=== PATIENT | female | born 1940 | race Caucasian/White ===

== ENCOUNTER 2016-11-16 22:40 | Inpatient (IN) ==
[2016-11-16] MEDS ORDERED: MORPHINE IV ONE (23:27)
[2016-11-16] MEDS ORDERED: ZOFRAN IV ONE (23:27)
[2016-11-16] MEDS ORDERED: NS 1,000 ML IV ONE (23:27)
[2016-11-17 00:12] LABS: MANUAL DIFF NEEDED? NO
[2016-11-17 00:17] LABS: BASO% 0.2 % (0.0-0.8); HEMATOCRIT 35.2 % (37.0-47.0); HEMOGLOBIN 11.5 g/dL (12.0-16.0); IMM GRAN# 0.03 X1000 (0.0-0.04); IMM GRAN% 0.3 % (0.0-0.5); LYMPH# 0.74 X1000 (1.2-3.4); LYMPH% 6.5 % (20.5-51.1); MCHC 32.7 g/dL (33-37); MCV 88.7 FL (81-99); MONO# 2.09 X1000 (0.11-0.59); MONO% 18.3 % (1.7-9.3); MPV 8.9 FL (7.4-10.4); NEUT% 74.7 % (42.2-75.2); PLT 257 X1000 (130-400); RBC 3.97 XMIL (4.2-5.4)
[2016-11-17 00:29] LABS: INR 1.19; PROTIME 12.6 Seconds (9.2-11.7); PTT 27.3 Seconds (22.0-36.0)
--- NOTE | 2016-11-17 00:37 | PROVIDER DOCUMENTATION ---
This chart was entered by Cadence Maurer Scribe, acting as scribe for Sincere Santiago MD. HPI-General Adult - General Chief Complaint: General Adult Stated Complaint: CAN'T WALK/SWOLLEN HANDS Time Seen by Provider: 11/16/16 23:06 Source: patient Allergies/Adverse Reactions: Patient Allergies Allergy/AdvReac Type Severity Reaction Status Date / Time daptomycin [From Cubicin] Allergy Severe RASH Verified 11/16/16 22:54 ceftriaxone sodium * Allergy RASH Verified 11/16/16 22:54 [From Rocephin] Penicillins Allergy RASH Verified 11/16/16 22:54 quinine Allergy RASH Verified 11/16/16 22:54 Sulfa (Sulfonamide Allergy RASH Verified 11/16/16 22:54 Antibiotics) Home Medications: Home Medication List Medication Instructions Recorded Confirmed Last Taken Type Telmisartan [Micardis] 40 mg PO DAILY 02/01/16 02/01/16 Unknown History Acetaminophen [Tylenol] 650 mg PO Q6H PRN PRN #0 tablet 02/07/16 Unknown Rx Clindamycin [Cleocin] 300 mg PO Q8HR #30 capsule 02/07/16 Unknown Rx Hydroxyzine Pamoate [Vistaril] 25 mg PO Q8H PRN #60 capsule 02/07/16 Unknown Rx Non-Formulary Bulk Med 30 appful TOP BID #30 misc 02/07/16 Unknown Rx Omeprazole [Prilosec] 40 mg PO DAILY@0700 #0 capsule 02/07/16 Unknown Rx Promethazine [Phenergan] 12.5 mg PO Q6H PRN PRN #30 tablet 02/07/16 Unknown Rx - History of Present Illness -Gen Adult Nature of Presenting Problems: Patient is a 76 year old female who presents in the ED with complaints of bilateral hand swelling/pain. Patient states she woke up this morning and was unable to get up from her bed due to weakness, and states she stayed in bed all day. She also states she did not eat today, but drank a small amount of water. She reports she has also had bilateral hand swelling/redness/pain. She denies any other symptoms. Location of Pain/Injury: reports: hand(s) (bilateral) Pain Radiation: reports: no radiation Quality of Pain: reports: aching Severity: reports: moderate Onset/Duration: reports: abrupt Timing: reports: still present, getting worse Context/Activities at Onset: reports: none Modifying Factors: improves with: nothing Associated Symptoms: reports: loss of appetite, weakness, other (bilateral hand swelling/pain/redness). denies: cough, nausea Similar Symptoms Previously?: No Recently seen or treated by another doctor?: No Review of Systems - Adult - REVIEW OF SYSTEMS - ADULT Constitutional: reports: other (weakness) Eyes: reports: no symptoms reported Ears, Nose, Mouth & Throat: reports: no symptoms reported Cardiovascular: reports: no symptoms reported Respiratory: reports: no symptoms reported. denies: cough Gastrointestinal: reports: no symptoms reported. denies: constipation, diarrhea , nausea, vomiting Genitourinary: reports: no symptoms reported. denies: see HPI, dysuria, discharge, frequency, flank pain, frequent UTI's, hematuria, hesitency, incontinence, urinary retention, urgency, other Musculoskeletal: reports: no symptoms reported Integumentary: reports: other (bilateral hand swelling/pain/redness/warmth) Neurological: reports: no symptoms reported Psychiatric: reports: no symptoms reported Endocrine: reports: no symptoms reported Hematologic/Lymphatic: reports: no symptoms reported Allergic/Immunologic: reports: no symptoms reported All Other Systems: Reviewed and Negative Past History - Adult - PAST MEDICAL HISTORY-ADULT Review of Records: reports: Nursing Assessment Review, Medications Reviewed Major Childhood Illnesses: reports: denies history Cardiovascular: reports: A-Fib Respiratory: reports: denies history Gastrointestinal: reports: denies history Obstetrical/Gynecological: reports: denies history Genitourinary: reports: denies history Musculoskeletal: reports: denies history Neurological: reports: CVA Endocrine/Immune: reports: thyroid disorder (hypo) Other Conditions: reports: denies history - PRIOR SURGERIES/PROCEDURES Surgical/Procedure History: reports: other (brain surgery, lumpectomy, eye surgery) - IMMUNIZATION STATUS Childhood Immunizations: See Nurse Assessment Flu Vaccine: See Nurse Assessment - FAMILY HISTORY Family History: reviewed, not pertinent - SOCIAL HISTORY Smoking: denies Substance Use: none/never Alcohol Use Frequency: never Living Situation: alone Physical Exam-General - PHYSICAL EXAM-ADULT Initial Vital Signs Reviewed: Yes - CONSTITUTIONAL General Appearance: alert, no apparent distress - EYES Eyes: PERRL/EOMI, pink conjunctivae - HEAD, EARS, NOSE, MOUTH & THROAT HENMT: normocephalic/atraumatic, moist mucous membranes - NECK Neck: non-tender, full range of motion, supple, normal inspection - RESPIRATORY Respiratory: chest non-tender, lungs clear, normal breath sounds, no pleuratic chest pain, no respiratory distress, no accessory muscle use - CARDIOVASCULAR Cardiovascular: normal peripheral pulses, regular rate, rhythm, no edema, no gallop, no JVD, no murmur - GASTROINTESTINAL (ABDOMEN) Abdominal Exam: non tender, soft, no organomegaly, no pulsatile mass - LYMPHATIC Lymphatic: no adenopathy - MUSCULOSKELETAL Back Exam: normal inspection, no CVA tenderness, no vertebral tenderness Extremity: normal range of motion, non-tender, normal inspection, no pedal edema , no calf tenderness, normal capillary refill, pelvis stable - SKIN Integumentary: normal color, normal turgor, warm/dry - NEUROLOGIC Neurologic: grossly normal, no motor/sensory deficits - PSYCHIATRIC Psych/Mental Status: normal mood/affect, oriented x 3 Progress - PLAN OF CARE/RESULTS Progress/Plan/Lab Results: Vital Signs - 8 hr 11/16/16 22:48 Temperature 100.4 F H Pulse Rate 87 Respiratory Rate 22 Blood Pressure 136/99 O2 Sat by Pulse Oximetry 99 Orders Category Date Time Status Cardiac Monitoring DIRECTED Care 11/16/16 23:27 Ordered IV Insertion ORDERED Care 11/16/16 23:27 Ordered Notify of + Sepsis Screen NOW Care 11/16/16 23:27 Ordered CHEST-2 VIEWS [RAD] Stat Exams 11/16/16 23:27 Ordered BLOOD CULTURE [BLDCUL] Stat Lab 11/16/16 23:27 Uncollected CBC WITH DIFF [HEME] Stat Lab 11/16/16 23:27 Uncollected CK PROFILE [SP CHEM] Stat Lab 11/16/16 23:27 Uncollected COMPREHENSIVE METABOLIC PANEL [CHEM] Stat Lab 11/16/16 23:27 Uncollected CRP [C REACTIVE PROT QUANT] [CHEM] Stat Lab 11/16/16 23:28 Uncollected LACTATE, PLASMA [CHEM] Stat Lab 11/16/16 23:27 Uncollected PROTIME WITH INR [COAG] Stat Lab 11/16/16 23:27 Uncollected PTT [COAG] Stat Lab 11/16/16 23:27 Uncollected SED RATE [HEME] Stat Lab 11/16/16 23:28 Uncollected TROPONIN T Stat Lab 11/16/16 23:27 Uncollected URINALYSIS W/POSS RFLX CULT-1 [URINALYSIS] Stat Lab 11/16/16 23:26 Uncollected Morphine Med 11/16/16 23:27 Once 2 mg IV NOW ONE Ns 1000 ml IV Bolus X1 Med 11/16/16 23:27 Ordered 0.9% Sodium Chloride Inj [Ns] 1,000 ml IV 999 mls/hr Ondansetron [Zofran] Med 11/16/16 23:27 Once 4 mg IV NOW ONE Result Diagrams: 11/17/16 00:05 - XRAY 1 XRAY Study: Chest Impression: Normal (except for COPD) Departure - Departure Date of Disposition Decision: 11/16/16 Time of Disposition Decision: 00:32 DIAGNOSIS: Septic arthritis of right wrist Disposition: ADMITTED INPATIENT 09 Certified Medical Emergency: Emergent Condition: Stable Referrals and Follow-Ups: Ciro Montez MD [Primary Care Provider] - - Critical Care Note This patient required my direct & personal management of CC.: No Attestation - Physician/ FORTINO Attestation Patient care was provided by Advanced Practice Provider:: No The physician spent face to face time with patient:: Yes Advanced Practice Provider documentation review:: Supervising physician onsite and consulted in the evaluation and care of this patient. The physician did have a face to face encounter with the patient. This chart was documented by the indicated scribe, (Cadence Maurer Scribe) and accurately reflects the services I performed and decisions made by me, Sincere Resendiz MD, as attested by the provider's signature.
[2016-11-17 00:41] LABS: AGAP 12; ALBUMIN 3.3 g/dL (3.5-5.0); ALKALINE PHOSPHATASE 69 U/L (32-104); BUN 16 mg/dL (8-22); CALCIUM 8.4 mg/dL (8.8-10.2); CHLORIDE 98 mmol/L (98-107); COSMO 273; GOT 31 U/L (10-30); GPT 14 U/L (10-36); POTASSIUM 3.8 mmol/L (3.5-5.1); SODIUM 135 mmol/L (136-145); TCO2 25 mmol/L (25-35); TOTAL BILIRUBIN 0.73 mg/dL (0.20-1.00); TOTAL PROTEIN 7.3 g/dL (6.3-8.3)
[2016-11-17 00:52] LABS: CK PROFILE 838 U/L (24-173)
[2016-11-17 01:11] LABS: CK INDEX 0.8 (0.0-2.5); CK-MB 6.96 ng/mL (0.0-5.0)
--- NOTE | 2016-11-17 02:21 | HISTORY AND PHYSICAL ---
PRIMARY CARE PROVIDER: Ciro Montez MD. REASON FOR ADMISSION: Three-day history of bilateral wrist pain and swelling and generalized weakness. HISTORY OF PRESENT ILLNESS: Ms. Edda Scott is a 76-year-old lady with a past medical history of atrial fibrillation, prior CVA, hypertension, rheumatoid arthritis, vitamin D deficiency, Gibson's esophagus, hypothyroidism, who was last admitted for presumptive lower extremity cellulitis. She comes in today complaining of bilateral wrist pain and swelling , after she attempted to lift her garage door open and in the process hyperextended both of her wrists. At that time she had some minimal pain and thought she only had a strain. However , 3 days late, she started noticing that the pain in her wrist had started getting progressively worse and she started noticing some swelling in both wrists, right greater than left. Today, her wrists are significantly swollen in size, doubled in size with noticeable redness in both wrists, more on the right again than the left. She was unable to even have any mobility on the right wrist, although she is still able to move, dorsi- and palmar flex her left wrist. She also complains of a 2-day history of intermittent low grade fevers and chills. She denies any bites or scratches from any of her 10 cats, which has in her possession. She was recently admitted to [facility], where she was treated extensively for some diffuse infection of her skin according to the son. Her son mentioned that she may have "mites." The patient admits to having generalized weakness for the last few days since the swelling started to the point that she cannot really get up or walk. Says she has been having lower abdominal pain and nausea and thinks it may be a recurrence of a UTI, which she tends to have frequently. No other additional gastrointestinal or genitourinary complaints. No focal neurological symptoms. Her lower extremities only hurt her a bit, but are not pleuritic. No swelling there. No PND or orthopnea. No cardiorespiratory complaints. She says, "her rheumatoid arthritis has not acted up." REVIEW OF SYSTEMS: Twelve system review is negative. Positive findings per HPI. ALLERGIES: 1. Daptomycin. 2. Rocephin. 3. Penicillins. 4. Quinine. 5. Sulfa. HOME MEDICATION: Home medication list was not reviewed, but the last list we have on record she was on: 1. Micardis. 2. Phenergan. 3. Omeprazole. 4. She was supposed to be on methotrexate. 5. Clindamycin. 6. Hydroxyzine. 7. Tylenol. FAMILY HISTORY: Not reviewed at this time. SOCIAL HISTORY: Denies any alcohol, tobacco or illicit substances and lives alone with 10 cats, a few of them are strays. SURGICAL HISTORY: She has had multiple cysts removed from her breasts and ablation of bilateral lower extremities. LABORATORY STUDIES: White count 7000, hemoglobin and hematocrit 11 and 35, platelets 257,000. Chemistry, chest film, and urinalysis pending. Blood cultures have been drawn. PHYSICAL EXAMINATION: VITAL SIGNS: Blood pressure is 136/99, temperature is 100.4 degrees, respirations 22, pulse 87, 99% room air. GENERAL: She is a chronically ill, frail, elderly woman, who is not in acute distress. She is alert and oriented to person, place, and time with normal mood and affect. HEENT: Head is normocephalic, atraumatic. Eyes: LILIA, EOMI. She is anicteric , not pale. ENT exam is grossly normal. NECK: Supple. No JVD or carotid bruit. No thyromegaly. CHEST: Clear to auscultation. Good air entry both lung avitia. CARDIOVASCULAR: First and 2nd heart sounds heard. No gallops, murmurs, rubs. Rhythm is regular. ABDOMEN: Scaphoid, soft, with tenderness confined mainly to the suprapubic and left lower quadrant areas. No rebound or guarding. No masses or organomegaly. Bowel sounds are hypoactive. RECTAL: Not done at this time. EXTREMITIES: Patient has extensive swelling on the dorsum of the right wrist extending to the entire dorsum of her hand. It is extremely tender to touch. She is unable to move it with active movement and I can barely even move it 1 cm in either direction by passive movement because this is an extreme pain. There is no crepitus felt. It is very hot to touch. The above area is very hot to touch and no pitting edema noted. The patiño surface is normal. No involvement of any of the phalanges of the right hand. The left wrist shows extensive erythema from the wrist to the dorsum of left wrist. There is very minimal swelling. It is tender to touch. She has a greater range of movement, at least 15-30 degrees in dorsi- and palmar flexion. No crepitus felt. Her lower extremities, patient has extensive xerosis with numerous yellowish crusting on both lower extremities. There is some mild hyperkalemia which appears to be chronic in nature in both lower extremities below the knee. Pulses are good distally in all extremities. No clubbing or peripheral cyanosis noted. NEUROLOGICAL: No focal deficits appreciated. SKIN: See above, otherwise unremarkable. MUSCULAR EXAM: Patient has diffuse muscular atrophy. ASSESSMENT: 1. Inflammatory arthritis probably septic arthritis. 2. Hypertension. 3. Atrial fibrillation. 4. Possible Lithuanian scabies. 5. Rheumatoid arthritis. 6. Moderate malnutrition. PLAN: 1. At this time, we will empirically treat patient for septic arthritis pending further evaluation by ID and more so the orthopedic team. Will start her empirically on vancomycin being that staph is the most common pathogens. However, due to the fact that the patient is immunocompromise from her rheumatoid arthritis and from presumed use of methotrexate, it will be prudent to broaden our coverage to cover for gram negatives. Start patient on ciprofloxacin due to her allergies to cephalosporin and penicillin. We will treat patient symptomatically for this. X-rays have been ordered and are pending at this time. 2. Regarding patient's lesions on her legs, these findings are somewhat reminiscent of Lithuanian scabies due to the fact that she has pets, she is immunocompromised, her age and her living conditions, according to her son, are atrocious to the point that he has not been at her house for a while. The patient, too, concurs and is willing to go to an assisted living facility. In the interim, I will empirically treat with legs with permethrin cream to apply daily for a week to see if this makes an impact. Preferably, it would be nice to get a sample of her skin to send to the lab to see if she has any mites and/or their eggs. This can be achieved simply by getting packaging tape and putting it over the crusted area and rapidly pulling it off and sending that to the lab. Alternatively, if this is negative, patient can be put on Lac-Hydrin to get rid of all the scaling and xerotic lesions on her legs. I will advise contact precautions in this patient. Also of note, one of the nurses says she noticed that the patient had "several fleas." I personally did not witness this, but I will err on the side of caution because the patient has 10 cats which were probably vectors for this. cc: Manuel Ortiz MD MTDD
[2016-11-17] MEDS ORDERED: ZOFRAN IV PRN (04:47)
[2016-11-17] MEDS ORDERED: VANCOMYCIN IV PER PHARMACY MISC SCH (04:47)
[2016-11-17] MEDS ORDERED: MORPHINE IV PRN (04:47)
[2016-11-17] MEDS: TYLENOL PO SCH ×4 (04:47→21:59)
[2016-11-17] MEDS ORDERED: CIPRO 400 MG/D5W 400 MG/200 ML IVPB IV SCH ×2 (04:47→16:00)
[2016-11-17 05:07] LABS: MANUAL DIFF NEEDED? NO
[2016-11-17 05:07] LABS: URINE SOURCE CLEAN CATCH
[2016-11-17 05:09] LABS: BILIRUBIN URINE NEGATIVE (NEGATIVE); BLOOD URINE MODERATE (NEGATIVE); COLOR ORANGE; GLUCOSE URINE NEGATIVE (NEGATIVE); LEUKOCYTES URINE LARGE (NEGATIVE); NITRITE URINE NEGATIVE (NEGATIVE); PROTEIN URINE 100 mg/dL (NEGATIVE); SP GRAVITY URINE 1.019; TURBIDITY URINE TURBID (CLEAR); UROBILINOGEN URINE NORMAL (NORMAL)
[2016-11-17 05:10] LABS: URINE MICRO REVIEW NEEDED? YES
[2016-11-17 05:13] LABS: BASO% 0.2 % (0.0-0.8); EOS# 0.01 X1000 (0.0-0.7); EOS% 0.1 % (0.0-10.0); HEMATOCRIT 33.5 % (37.0-47.0); HEMOGLOBIN 10.8 g/dL (12.0-16.0); LYMPH# 1.01 X1000 (1.2-3.4); MCHC 32.2 g/dL (33-37); MCV 89.8 FL (81-99); MONO# 1.91 X1000 (0.11-0.59); MONO% 18.8 % (1.7-9.3); MPV 8.7 FL (7.4-10.4); NEUT% 70.9 % (42.2-75.2); PLT 243 X1000 (130-400); RBC 3.73 XMIL (4.2-5.4)
[2016-11-17 05:14] LABS: UR EPITHELIAL CELLS <10 /HPF (<10); URINE BACTERIA 4+ /HPF; URINE CULTURE NEEDED? YES; URINE WBC TNTC /HPF (<10)
[2016-11-17 05:20] LABS: URINE CASTS NONE SEEN; URINE CRYSTALS NONE SEEN; URINE SMALL ROUND CELLS NONE SEEN
--- NOTE | 2016-11-17 05:29 | Diag Imaging Result Doc PS360 ---
EXAM: CHEST-1 VIEW HISTORY: fever TECHNIQUE: Portable upright COMPARISON: 01/01/2013 FINDINGS: The lungs are hyperexpanded. There is a granuloma in the right upper lung. The heart is not enlarged. Pulmonary vessels are small. No consolidation. No pleural effusions identified. IMPRESSION: No pneumonia. Emphysema. Electronically signed by [place] 11/17/2016 5:27 AM
[2016-11-17 05:30] LABS: AGAP 15; ALBUMIN 2.6 g/dL (3.5-5.0); ALKALINE PHOSPHATASE 65 U/L (32-104); BUN 14 mg/dL (8-22); CALCIUM 7.9 mg/dL (8.8-10.2); CHLORIDE 100 mmol/L (98-107); COSMO 278; GOT 30 U/L (10-30); GPT 12 U/L (10-36); POTASSIUM 4.1 mmol/L (3.5-5.1); SODIUM 138 mmol/L (136-145); TCO2 23 mmol/L (25-35); TOTAL BILIRUBIN 0.55 mg/dL (0.20-1.00); TOTAL PROTEIN 6.4 g/dL (6.3-8.3)
[2016-11-17] MEDS ORDERED: VANCOMYCIN 1,450 MG in NS 250 ML IV ONE (06:00)
[2016-11-17] MEDS: ELIMITE 5% CREAM TOP SCH (08:34)
[2016-11-17] MEDS: HEPARIN SUBQ SCH ×2 (08:35→21:58)
--- NOTE | 2016-11-17 16:24 | Diag Imaging Result Doc PS360 ---
WRIST COMPLETE RIGHT - 11/17/2016 INDICATION: wrist and hand swelling TECHNIQUE: Three views COMPARISON: None FINDINGS: No definite fracture or dislocation. There is severe degeneration at the first carpometacarpal joints. IMPRESSION: Degeneration of the wrist but no acute disease. Electronically signed by Lance Wolf 11/17/2016 4:22 PM
--- NOTE | 2016-11-17 16:55 | CONSULTATION ---
DATE OF CONSULTATION: 11/17/2016 CONCLUSION: The patient has had a chronic problem with leg cellulitis. Her legs are very erythematous and the skin is crusting off. Patient also on urinalysis appears to have a urinary tract infection. There are many white cells and bacteria present. Finally the patient's right wrist and his hand are swollen. I share the concern with Dr. Ortiz that the patient may have septic arthritis of the wrist. RECOMMENDATIONS: I agree with the decision to place the patient on vancomycin. I have substituted p.o. Levaquin for IV ciprofloxacin. I also ordered a x-ray of the wrist. PHYSICAL EXAMINATION: Vital Signs: Temperature is 98.3 degrees, respirations 18, blood pressure 117/63. The patient is 5 feet 7 inches tall, weighs 109 pounds. General: This is a chronically ill-appearing and malnourished appearing elderly female. She is in no acute distress. Head, eyes, ears, nose, and throat: She has dentures in the uppers. She can hear my spoken words and see near objects. There is no white patches on the tongue. Neck: No meningismus. Thorax: No increased AP diameter of the chest. Lungs: Clear to auscultation. Cardiovascular: Heart rate is regular. Abdomen: Soft and nontender. Extremities: Both legs are erythematous and they have marked scaling of the skin which is easily removed. The patient's right wrist also is very swollen and painful with movement. There is some swelling of the hand also. Neurologic: Patient is alert. She can move her extremities. There is no tremor. Her sensation is intact to touch. Her memory, as regarding her medical history, was diminished. PAST MEDICAL HISTORY/REVIEW OF SYSTEMS: Eyes and ears: Patient denies difficulty hearing or seeing. Neck: No meningismus. Thorax: No increased AP diameter of the chest. Lungs: Clear to auscultation. Cardiovascular: Heart rate is regular. Abdomen: Soft and nontender. Both legs are erythematous. They are not edematous and there is marked scaling of the skin. Neurologic: The patient is awake. She can move her extremities. There is no tremor. Integument: See description of the patient's legs. PRESENT ILLNESS: The patient for a year had problems with leg cellulitis with scaling of the skin. She also has noticed that her wrist was swelling and giving her a lot of pain. She has been very weak in the past week. She has also had a low-grade temperature, the maximum being 100.4. OBSTETRICS/GYNECOLOGIC HISTORY: She is a 2, para 1, AB 1. PREVIOUS HOSPITALIZATIONS AND OPERATIONS: She has had a labor and delivery, a miscarriage, and breast biopsies, all of which were benign. She is a 2, para 1, AB 1. She has been admitted before because of leg cellulitis. She also had brain surgery because of an intracranial hemorrhage. She has also had both toenails removed off the great toes. MEDICAL DISEASES: Positive for hypertension, intracranial hemorrhage, gastroesophageal reflux disease, and rheumatoid arthritis. INFECTIOUS DISEASE: Positive for UTI and leg cellulitis. FAMILY HISTORY: Positive for hypertension, myocardial infarction, stroke, and cancer. SOCIAL HISTORY[place] She stopped smoking cigarettes years ago. She does not drink alcoholic beverages. She does not abuse drugs. She is . She lives alone. Thank you for the consult. cc: MD MARY Yost
[2016-11-17] MEDS: LEVAQUIN PO SCH (17:06)
[2016-11-17] MEDS: OXY IR PO PRN (19:27)
[2016-11-18] MEDS: TYLENOL PO SCH ×4 (04:07→20:48)
[2016-11-18] MEDS: OXY IR PO PRN (06:21)
[2016-11-18 06:41] LABS: MANUAL DIFF NEEDED? NO
[2016-11-18 06:46] LABS: BASO% 0.3 % (0.0-0.8); EOS# 0.48 X1000 (0.0-0.7); EOS% 7.1 % (0.0-10.0); HEMOGLOBIN 11.2 g/dL (12.0-16.0); LYMPH# 1.17 X1000 (1.2-3.4); LYMPH% 17.4 % (20.5-51.1); MCV 90.7 FL (81-99); MONO# 0.83 X1000 (0.11-0.59); MONO% 12.3 % (1.7-9.3); MPV 9.2 FL (7.4-10.4); NEUT% 62.9 % (42.2-75.2); PLT 259 X1000 (130-400); RBC 3.86 XMIL (4.2-5.4)
[2016-11-18 07:06] LABS: AGAP 10; ALBUMIN 2.5 g/dL (3.5-5.0); ALKALINE PHOSPHATASE 57 U/L (32-104); BUN 18 mg/dL (8-22); CHLORIDE 101 mmol/L (98-107); COSMO 274; GOT 29 U/L (10-30); GPT 14 U/L (10-36); SODIUM 137 mmol/L (136-145); TCO2 26 mmol/L (25-35); TOTAL PROTEIN 6.2 g/dL (6.3-8.3)
[2016-11-18] MEDS: HEPARIN SUBQ SCH ×2 (09:34→20:48)
[2016-11-18] MEDS: ELIMITE 5% CREAM TOP SCH (09:35)
[2016-11-18] MEDS ORDERED: MORPHINE IV PRN (11:21)
--- NOTE | 2016-11-18 11:52 | PROGRESS NOTE ---
DATE: 11/18/2016 Today Ms. Edda Scott referred to be doing a little better. Still continues to have some remarkable discomfort at the right wrist. OBJECTIVE: Vital signs: Blood pressure is 128/65, pulse of 69, respirations 18 , temperature 98.4 degrees. General Exam: Ms. Edda Scott is a 76-year-old female. She is in bed, does not seem to be in unremarkable distress. HEENT: Mucosa is slightly pale and slightly dry, anicteric and acyanotic. Neck: Supple. Chest: Good air entry bilaterally. No crepitations. No rhonchi. Cardiovascular: Regular rate and rhythm. No murmurs, no rubs. No gallops. Abdomen: Soft, nontender. There is no hepatosplenomegaly. Extremities: The right upper extremity has some discomfort at the wrist. It is slightly swollen. It has limited range of movement but there are no erythematous changes or any temperature changes. There seems to be minimum effusion in the joint. The lower extremities bilaterally, there are squamous scaly lesions in the legs extending all the way to below the knees with underlying erythematous changes which is consistent with possible superimposed cellulitis of chronic venostasis. LABORATORY DATA: WBC 6.79, hemoglobin is 11.2, platelet count of 259,000. Chemistry is reviewed. It is completely unremarkable. Urine is abnormal with the culture showing gram-negative livan. ASSESSMENT: 1. Bilateral chronic stasis dermatitis with superimposed cellulitis. 2. Traumatic right wrist. X-ray is negative for any fracture. I do not think the wrist is septic. I think it is probably traumatic infusion on top of severe degenerative joint disease vs RA flare. 3. Gram-negative livan urinary tract infection. The patient is on levofloxacin and we will keep that. 4. History of atrial fibrillation, currently rate controlled. 5. Hypertension is stable. 6. Hypothyroidism. Will continue with thyroid supplement. So in general, I think Ms. Scott is relatively stable. She is currently on levofloxacin and vancomycin. We will be pending the ID and sensitivity on the gram negative livan. I will discontinue the permethrin. Scabies is less likely. will be pending Wound Care to evaluate the scaly lesions on the lower extremity to see how best to help to address it. cc: MD MARY Johnson
--- NOTE | 2016-11-18 12:30 | CONSULTATION ---
DATE OF CONSULTATION: 11/18/2016 PATIENT'S PRIMARY PHYSICIAN: Dr. Ciro Montez. ADMITTING PHYSICIAN: Dr. Vel Ortiz. CHIEF COMPLAINT: Pain, swelling, right wrist and hand. HISTORY OF PRESENT ILLNESS: The patient is a very sweet, 76-year-old female, who has a known family history of rheumatoid arthritis. She reports that a couple days prior to admission she was having to overuse her wrists and hands. She used her arms to raise her garage door which was a little more difficult than usual. The next day, she began having swelling and irritation of the wrist bilaterally. She states that she has been on methotrexate for a long time. She states that she also takes anti-inflammatories occasionally. The patient states she started the anti- inflammatories, ice, and heat with continuation of the discomfort. She began having more redness in the right wrist yesterday. She ended up being admitted and started empirically on vancomycin. The patient states today she is much better in regards to range of motion and pain in the right wrist. She reports some continued swelling but states this is going down considerably throughout the day. She states now she can move the right wrist better than the left wrist. The patient states she has had flares like this in the past whenever she "did too much" with her wrist. She states it usually cools down within several days. She denies any fevers or chills. She denies any kind of cuts are penetrating injuries to the wrist. She has no other systemic complaints to be concerning for any type of sepsis. PAST MEDICAL HISTORY: Rheumatoid arthritis, atrial fibrillation, prior cerebrovascular accident, hypertension, vitamin D deficiency, Gibson's esophagitis, hypothyroidism. PAST SURGICAL HISTORY: 1. Multiple cysts removed from her breasts. 2. Ablation of bilateral lower extremities. CURRENT MEDICATIONS: As per the list in chart and reviewed with patient. DRUG ALLERGIES: Daptomycin, Rocephin, penicillins, quinine, and sulfa. SOCIAL HISTORY: The patient did have a remote history of tobacco use. She denies any tobacco, alcohol, or illicit drug use now. She lives alone. FAMILY HISTORY: Reviewed and noncontributory. REVIEW OF SYSTEMS: A 14-point review of systems was obtained and positive as per listed in the HPI above. PHYSICAL EXAMINATION: She has moderate swelling of the right wrist compared to the left. Range of motion exercises demonstrate actually a better range of motion of the right wrist than the left wrist. She has near full flexion and near full extension. She has full pronation and supination of the form. There is a positive grind test in the right 1st CMC joint. There is a Z deformity noted at the CMC joint. There is no erythema today. There is mild warmth in both wrist. X-ray views of the right wrist reveal significant degenerative joint disease in the radiocarpal joint of the right wrist. There is also significant DJD of the 1st CMC joint. There is an ulnar drift of the fingers consistent with her rheumatoid arthritis. IMPRESSION: 1. Exacerbation of rheumatoid arthritis. 2. Advanced degenerative joint disease, right radiocarpal joint. 3. Advanced degenerative joint disease right 1st CMC joint. PLAN: The patient has gotten much better overnight. In discussions with her, it sounds like she has had flares of this in the past. She has a rather significant rheumatoid arthritis with ulnar drift of the fingers. I feel that she has inflamed the wrist whenever she was trying to raise her garage door. Based on Dr. Ortiz's description from yesterday to today, the erythema, warmth, and swelling are much better. Her range of motion is now better in the right wrist than the left. At this point, I would recommend symptomatic care for her. We will sign off care at this point. cc: Edison Maguire, DO
[2016-11-18] MEDS: LEVAQUIN PO SCH (18:15)
[2016-11-18] MEDS: VANCOMYCIN 1,200 MG in NS 250 ML IV SCH (18:15)
[2016-11-19] MEDS: TYLENOL PO SCH ×4 (04:59→21:43)
[2016-11-19] MEDS: HEPARIN SUBQ SCH ×2 (11:28→21:43)
--- NOTE | 2016-11-19 12:15 | PROGRESS NOTE ---
DATE: 11/19/2016 SUBJECTIVE: Today Ms. Tyler Bañuelos refers to be doing remarkably fine. She did not have any complaints. OBJECTIVE: Vital signs: Her blood pressure is 152/75, pulse of 70, respirations 14, temperature 97.6 degrees. General: Ms. yTler Bañuelos is a 76-year-old female. She is in bed, does not seem to be in any remarkable distress. HEENT: Mucosa is pink and moist. Anicteric. Acyanotic. Neck: Supple. Chest: Clear. Cardiovascular: Regular rate and rhythm. Abdomen: Soft. Extremities: Continue to be scaly, erythematous changes on the lower extremities. The right wrist is now more mobile and less painful. LABORATORY DATA: WBC is 6.73, hemoglobin is 11.2, platelet count of 259,000. Chemistry is also reviewed, completely unremarkable. TSH is 5.39, free T4 is normal. ASSESSMENT: 1. Bilateral chronic stasis dermatitis of both lower extremities with superimposed cellulitis. 2. Traumatic wrist with x-ray negative for any fracture. There is a suspicion of severe degenerative joint disease versus RA flare. 3. Escherichia coli urinary tract infection. The patient continues to be on levofloxacin. 4. Atrial fibrillation, currently rate controlled. 5. Hypertension. 6. Subclinical hypothyroidism. TSH is not high enough to warrant therapy in this geriatric age group. 7. Generalized weakness. Will consult social services manager for rehab placement to help patient physical worship. PLAN: So in general, I think Ms Scott is clinically stable and improving. We will continue with the current antibiotics. We will be consulting social work for rehab placement. We are also pending wound care to evaluate the legs. cc: Jaya Garcia MD MTDD
[2016-11-19] MEDS: LEVAQUIN PO SCH ×2 (15:46→18:08)
[2016-11-20] MEDS: TYLENOL PO SCH ×4 (03:37→14:56)
[2016-11-20] MEDS: VANCOMYCIN 1,200 MG in NS 250 ML IV SCH (05:13)
[2016-11-20] MEDS: HEPARIN SUBQ SCH (08:54)
[2016-11-20 13:55] VITALS: BP 132/67
--- NOTE | 2016-11-20 14:03 | DISCHARGE SUMMARY ---
ADMISSION DATE: 11/17/2016 DISCHARGE DATE: 11/20/2016 CONSULTATIONS: 1. Dr. Maurisio Manuel with infectious disease. 2. Dr. Edison Maguire. PERTINENT PROCEDURES: 1. Chest x-ray showed no pneumonia, emphysema. 2. Wrist x-ray showed degeneration of the wrist but no acute disease. DISCHARGE DIAGNOSES: 1. bilateral chronic stasis dermatitis of both lower extremities with superimposed cellulitis. Continue with p.o. Levaquin. 2. Traumatic wrist with x-ray negative for any fractures. Suspicious for severe disk degenerative joint disease versus rheumatoid arthritis flare. Patient being discharged to rehab. 3. Escherichia coli urinary tract infection. Continue with levofloxacin. 4. Atrial fibrillation. Currently rate controlled. 5. Hypertension, stable. 6. Subclinical hypothyroidism. 7. Generalized weakness. The patient is being discharged to [facility]. HOSPITAL COURSE: Ms. Scott is a 76-year-old female with a past medical history of atrial fibrillation, prior CVA, hypertension, rheumatoid arthritis, vitamin D deficiency, Gibson esophagus, hypothyroidism. The last admission was for lower extremity cellulitis. She came to the ED complaining of bilateral wrist pain and swelling after she attempted to lift her garage door open and in the process hyperextended both of her wrists. At that time she had some minimal pain and thought she only had a strain. However, 3 days later she started noticing that the pain in her wrist started getting progressively worse and started noticing swelling of both her wrists, right greater than left. On the day of her admission, her wrists were significantly swollen in size, double in size with notable redness of both wrists. She was unable to move the right wrist and complained of a 2-day history of intermittent low-grade fevers and chills. She was recently admitted to [facility] where she was treated extensively for a skin infection. She also complained of generalized weakness and lower abdominal pain and nausea related to the recurrence of a UTI which she tends to have frequently. Urinalysis did show 4+ bacteria, large leukocytes, too numerous to count WBCs. Blood cultures were drawn. She was empirically treated for possible septic arthritis. Evaluation by ID as well as the orthopedic team. Started on vancomycin. Her wrist x-ray showed degeneration of the wrist but no acute disease on the right. Dr. Manuel agreed with IV vancomycin and substituted p.o. Levaquin for ciprofloxacin. Dr. Maguire with orthopedics spoke with the patient. She has had an exacerbation of her rheumatoid arthritis. She has had flares in the past. Her erythema, warmth, and swelling improved overnight. Her range of motion is now better in the right wrist as well as the left. He recommended symptomatic care for her. Her urine culture did grow out an E. coli urinary tract infection. She continued on p.o. levofloxacin. Her IV vancomycin was discontinued. Clinically Ms. Scott is stable and improving. vp marketing services and skin was consulted for rehab placement. She has been accepted to [facility]. Also the culture of her legs was Staphylococcus warneri that was sensitive to levofloxacin as well. VITAL SIGNS: At time of her discharge, temperature is 98 degrees, heart rate 69 , respiration 17, blood pressure 138/69, O2 is 99% on room air. DISCHARGE DIET: Regular. DISCHARGE MEDICATIONS: As per Dr. Garcia. Please see MAR. FOLLOW UP: Ms. Scott is being discharged to [facility]. She will follow up with her primary care physician, Dr. Ciro Montez after rehab. She can return to the ED for any worsening of symptoms. Dictated by TAWNY Garcia for Jaya Garcia MD cc: MD Ciro Johnson MD [facility] CENTERAlma
--- NOTE | 2016-11-20 16:07 | PROGRESS NOTE ---
DATE: 11/20/2016 PRESENT ILLNESS: The patient has bilateral leg cellulitis. She also has a E. coli urinary tract infection and earlier had marked swelling of her wrist and hand. MEDICATIONS: The patient is taking IV Levaquin. She was at 1 time on vancomycin but this has been discontinued. PHYSICAL EXAMINATION: Vital Signs: Temperature is 98.1 degrees, pulse 71, respirations 16, blood pressure 132/64. General: This is a chronically ill-appearing, elderly female. She is in no acute distress. Lungs: Clear to auscultation. Cardiovascular: Regular heart rate. Abdomen: Soft and nontender. The patient's right hand and arm are much less swollen. They are not erythematous and they are not painful with movement. Both legs have dressings on them. The dressings are intact. LAB AND X-RAY: The patient's creatinine is 0.7. GFR is greater than 60. Liver function studies are normal. The patient's CBC shows a white count of 6730, hemoglobin 11.2, and platelet count of 259,000. The patient's urine is growing E. coli. Her culture from the right leg is growing out Staph warneri. Urine is growing E. coli. ASSESSMENT AND PLAN: I think the patient can remain on Levaquin as a single agent to treat both the leg cellulitis and urinary tract infection. The wound nurse has been to caring for the patient's wounds. It is my understanding that the patient is going to an LTAC. cc: Maurisio Manuel MD
== END 2016-11-20 15:19 ==
LOC: ED 22:40 → SUATTDRO 11-17 02:02 → EDIPHOLD 11-17 02:02 → 3N 11-17 15:07
PROVIDERS: ATTEND Internal Medicine

== ENCOUNTER 2019-01-14 22:40 | Inpatient (IN) ==
[~2019-01-14 22:40] MED LIST: NS 1,000 ML IV ONE
[2019-01-14 23:36] LABS: BASO# 0.02 X1000 (0.0-0.2); BASO% 0.2 % (0.0-0.8); EOS# 0.06 X1000 (0.0-0.7); EOS% 0.6 % (0.0-10.0); HEMATOCRIT 46.4 % (37.0-47.0); HEMOGLOBIN 14.8 g/dL (12.0-16.0); IMM GRAN# 0.02 X1000 (0.0-0.04); IMM GRAN% 0.2 % (0.0-0.5); LYMPH# 0.98 X1000 (1.2-3.4); MCH 28.5 PG (27-31); MCHC 31.9 g/dL (33-37); MCV 89.4 FL (81-99); MONO# 0.93 X1000 (0.11-0.59); MONO% 9.5 % (1.7-9.3); MPV 9.5 FL (7.4-10.4); NEUT# 7.76 X1000 (1.4-6.5); NEUT% 79.5 % (42.2-75.2); PLT 229 X1000 (130-400); RBC 5.19 XMIL (4.2-5.4); RDW 14.1 % (11.5-14.5); WBC 9.77 X1000 (4.8-10.8)
[2019-01-15 00:26] LABS: AGAP 15; ALBUMIN 4.3 g/dL (3.5-5.0); ALKALINE PHOSPHATASE 86 U/L (32-104); BUN 25 mg/dL (8-22); CALCIUM 9.3 mg/dL (8.8-10.2); CHLORIDE 100 mmol/L (98-107); COSMO 280; CREATININE 0.8 mg/dL (0.5-0.9); ESTIMATED GFR > 60; GLUCOSE 101 mg/dL (70-104); GOT 59 U/L (10-30); GPT 22 U/L (10-36); POTASSIUM 4.4 mmol/L (3.5-5.1); SODIUM 138 mmol/L (136-145); TCO2 24 mmol/L (25-35); TOTAL PROTEIN 7.4 g/dL (6.3-8.3)
--- NOTE | 2019-01-15 02:12 | PROVIDER DOCUMENTATION ---
This chart was entered by Cecilia Manuel Scribe, acting as scribe for Erasmo Purvis MD. HPI-Head Injury - General Chief Complaint: Fall Stated Complaint: fall Source: patient, EMS Allergies/Adverse Reactions: Patient Allergies Allergy/AdvReac Type Severity Reaction Status Date / Time daptomycin [From Cubicin] Allergy Severe RASH Verified 01/14/19 23:57 ceftriaxone sodium * Allergy RASH Verified 01/14/19 23:57 [From Rocephin] Penicillins Allergy RASH Verified 01/14/19 23:57 quinine Allergy RASH Verified 01/14/19 23:57 Sulfa (Sulfonamide Allergy RASH Verified 01/14/19 23:57 Antibiotics) Home Medications: Home Medication List Medication Instructions Recorded Confirmed Last Taken Type Acetaminophen [Tylenol] 650 mg PO Q6H PRN PRN #0 tablet 02/07/16 01/15/19 Unknown Rx Hydroxyzine Pamoate [Vistaril] 25 mg PO Q8H PRN #60 capsule 02/07/16 01/15/19 Unknown Rx Apixaban [Eliquis] 1 tab PO BID 01/15/19 01/15/19 01/14/19 History Citalopram Hydrobromide 1 tab PO DAILY 01/15/19 01/15/19 01/14/19 History [Citalopram HBr] Mupirocin 1 applicatn TOP DAILY 01/15/19 01/15/19 01/14/19 History Propafenone [Rythmol] 1 tab PO BID 01/15/19 01/15/19 01/14/19 History - History of Present Illness-Head Injury Nature of Presenting Problem: Pt is 78 yof who presents to the ED via EMS with a complaint of head and right intercostal pain. EMS states that pt fell yesterday afternoon while attempting to feed her cats. EMS states that neighbors found the Pt laying in the dirt under her porch. EMS reports chills. Pt states that she could not stand up by herself. Pt denies chest pain, dizziness, and nausea. Head Injury Location: reports: occipital Other injuries associated with incident:: reports: neck Quality of Pain: reports: aching Severity: reports: moderate Onset/Duration: reports: 24 hours ago Timing: reports: still present Method of Injury: reports: fell Any recent trauma/injury?: reports: none Loss of Consciousness: no loss of consciousness Modifying Factors: improves with: nothing Injury Associated Symptoms: reports: back/neck pain, other Similar Symptoms Previously?: Yes Review of Systems - Adult - REVIEW OF SYSTEMS - ADULT Constitutional: reports: marlenque Eyes: denies: no symptoms reported Ears, Nose, Mouth & Throat: denies: no symptoms reported Cardiovascular: denies: no symptoms reported Respiratory: reports: cough Gastrointestinal: denies: no symptoms reported Genitourinary: denies: no symptoms reported Musculoskeletal: reports: see HPI Integumentary: reports: see HPI Neurological: denies: no symptoms reported Psychiatric: denies: no symptoms reported Endocrine: denies: no symptoms reported Hematologic/Lymphatic: denies: no symptoms reported Allergic/Immunologic: denies: no symptoms reported Past History - Adult - PAST MEDICAL HISTORY-ADULT Review of Records: reports: Old Records Reviewed, Nursing Assessment Review, Medications Reviewed, Social history reviewed & non-contributory. Major Childhood Illnesses: reports: denies history Cardiovascular: reports: A-Fib Respiratory: reports: denies history Gastrointestinal: reports: denies history Obstetrical/Gynecological: reports: denies history Genitourinary: reports: denies history Musculoskeletal: reports: denies history Neurological: reports: CVA Endocrine/Immune: reports: thyroid disorder (hypo) Other Conditions: reports: denies history - PRIOR SURGERIES/PROCEDURES Surgical/Procedure History: reports: other (brain surgery, lumpectomy, eye surgery) - IMMUNIZATION STATUS Childhood Immunizations: See Nurse Assessment Flu Vaccine: See Nurse Assessment - FAMILY HISTORY Family History: reviewed, not pertinent Physical Exam- Neurological - Physical Exam-Neuro Initial Vital Signs Reviewed: Yes General Appearance: appears well, alert, no apparent distress Eye Exam: bilateral eye: normal inspection, PERRL, EOMI HENMT: normocephalic/atraumatic, TMs normal Head Injury: no evidence of injury. 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 II-XII nml as tested, grossly normal Integumentary: normal color, warm/dry, other (severe dryness of the b/l lower extremities) Psych/Mental Status: normal mood/affect, normal thought content, oriented x 3 - Glascow Coma Scale Best Eye Response: (4) open spontaneously Best Verbal Response: (5) oriented Best Motor Response: (6) obeys commands Total Glascow Score: 15 Progress - PLAN OF CARE/RESULTS Progress/Plan/Lab Results: Vital Signs - 8 hr 01/14/19 22:19 01/14/19 23:58 01/15/19 00:36 Temperature 98 F 98.2 F Pulse Rate 95 H 89 Respiratory Rate 18 20 Blood Pressure 125/88 134/68 O2 Sat by Pulse Oximetry 97 99 01/15/19 02:46 01/15/19 02:48 Temperature 97.2 F L Pulse Rate 89 Respiratory Rate 17 Blood Pressure 122/74 O2 Sat by Pulse Oximetry 94 L Laboratory Results - last 24 hr 01/14/19 01/14/19 01/14/19 23:25 23:25 23:25 WBC 9.77 RBC 5.19 Hgb 14.8 Hct 46.4 MCV 89.4 MCH 28.5 MCHC 31.9 L RDW Std Deviation 14.1 Plt Count 229 MPV 9.5 Immature Gran % (Auto) 0.2 Neut % (Auto) 79.5 H Lymph % (Auto) 10.0 L [place] % (Auto) 9.5 H Eos % (Auto) 0.6 Baso % (Auto) 0.2 Immature Gran # (Auto) 0.02 Neut # (Auto) 7.76 H Lymph # (Auto) 0.98 L [place] # (Auto) 0.93 H Eos # (Auto) 0.06 Baso # (Auto) 0.02 Sodium 138 Potassium 4.4 Chloride 100 Carbon Dioxide 24 L Anion Gap 15 BUN 25 H Creatinine 0.8 Estimated GFR/1.73 m2 > 60 BUN/Creatinine Ratio 31 Glucose 101 Calculated Osmolality 280 Calcium 9.3 Total Bilirubin 0.80 AST 59 H ALT 22 Alkaline Phosphatase 86 Creatine Kinase 2952 H Creatine Kinase Index 0.7 CK-MB (CK-2) 21.31 H Total Protein 7.4 Albumin 4.3 Globulin 3.0 Albumin/Globulin Ratio 1.0 Plasma Lactate 01/14/19 23:35 WBC RBC Hgb Hct MCV MCH MCHC RDW Std Deviation Plt Count MPV Immature Gran % (Auto) Neut % (Auto) Lymph % (Auto) [place] % (Auto) Eos % (Auto) Baso % (Auto) Immature Gran # (Auto) Neut # (Auto) Lymph # (Auto) [place] # (Auto) Eos # (Auto) Baso # (Auto) Sodium Potassium Chloride Carbon Dioxide Anion Gap BUN Creatinine Estimated GFR/1.73 m2 BUN/Creatinine Ratio Glucose Calculated Osmolality Calcium Total Bilirubin AST ALT Alkaline Phosphatase Creatine Kinase Creatine Kinase Index CK-MB (CK-2) Total Protein Albumin Globulin Albumin/Globulin Ratio Plasma Lactate 1.7 Orders Category Date Time Status Admit - [facility] Routine AdmDCTranf 01/15/19 03:17 Active Saline Loc NOW Care 01/14/19 22:[address] HEAD/C-SPINE W/O CONTRAST [CT] Stat Exams 01/15/19 00:58 Taken RIBS BILATERAL W/PA CHEST [RAD] Stat Exams 01/14/19 22:40 Taken BLOOD CULTURE [BLDCUL] Stat Lab 01/14/19 23:41 Ordered CBC WITH DIFF [HEME] Stat Lab 01/14/19 23:25 Completed CK PROFILE [SP CHEM] Stat Lab 01/15/19 03:13 Completed COMPREHENSIVE METABOLIC PANEL [CHEM] Stat Lab 01/14/19 23:25 Completed LACTATE, PLASMA [CHEM] Stat Lab 01/14/19 23:35 Completed MYOGLOBIN SERUM [HH] Stat Lab 01/15/19 03:13 Received 0.9% Sodium Chloride Inj [Ns] 1,000 ml Med 01/15/19 03:17 Active IV 75 mls/hr 0.9% Sodium Chloride Inj [Ns] 1,000 ml Med 01/14/19 22:40 Discontinued IV 999 mls/hr Pulse Oximetry Stat Oth 01/14/19 22:40 Active Transfer/Admit Order [TRANSFER] Routine Transfer 01/15/19 03:19 Ordered Result Diagrams: 01/14/19 23:25 01/14/19 23:25 - REASSESSMENT Reassessment #1 Time Reassessed: 02:15 Status: unchanged (pt unable to walk or get out of bed with out assistance) - CONSULTS/PCP/HOSPITALIST Notification #1 *Consult/PCP/Hospitalist*: d/w Dr Daley Time Discussed: 03:08 Consult Disposition: Admit Departure - Departure Date of Disposition Decision: 01/15/19 Time of Disposition Decision: 02:39 DIAGNOSIS: Dehydration, Generalized weakness, Fall, Rib contusion, Rhabdomyolysis Disposition: ADMITTED INPATIENT 09 Certified Medical Emergency: Emergent Condition: Stable Additional Instructions: ED Follow Up Instructions: Please ensure hydration. Please take fall precautions. You have been treated by a care provider in the Emergency Department. These instructions are being provided to you so you can have an understanding of how to care for yourself upon discharge. [facility] you are responsible for making arrangements for follow-up care by a physician of your choice. Take all prescribed medications as directed. Return to the Emergency Department immediately for any new or worsening symptoms. You may call the Physician Referral phone number at [phone] to obtain a list of Physicians who are taking new patients. Referrals and Follow-Ups: Ciro Montez MD [Primary Care Provider] - Discharge Education: Fall Prevention in the Home, Adult, [id number], Dehydration, Elderly, [id number] - Critical Care Note This patient required my direct & personal management of CC.: No Attestation - Physician/ FORTINO Attestation Patient care was provided by Advanced Practice Provider:: No The physician spent face to face time with patient:: Yes Advanced Practice Provider documentation review:: Supervising physician onsite and consulted in the evaluation and care of this patient. The physician did have a face to face encounter with the patient. This chart was documented by the indicated scribe, (Cecilia Manuel Scribe) and accurately reflects the services I performed and decisions made by me, Erasmo Purvis MD, as attested by the provider's signature.
[2019-01-15] MEDS ORDERED: NS 1,000 ML IV ONE (03:17)
[2019-01-15 03:59] LABS: CK INDEX 0.7 (0.0-2.5); CK-MB 21.31 ng/mL (0.0-5.0)
--- NOTE | 2019-01-15 04:58 | Diag Imaging Result Doc PS360 ---
EXAM : CT HEAD/C-SPINE W/O CONTRAST HISTORY: fall TECHNIQUE: 1. CT head without contrast 2. CT cervical spine without contrast COMPARISON: None. FINDINGS: Head: No parenchymal hemorrhage. No epidural or subdural hematoma. No subarachnoid hemorrhage. 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 No mass identified on this noncontrasted exam. No hydrocephalus. No sinus opacification. Cervical spine: There is moderate degenerative changes in the lower cervical spine most pronounced at C5-6. No precervical soft tissue swelling. No subluxation. No fracture. Prominent atherosclerosis in the carotid bulbs. IMPRESSION: Head: No hemorrhage. No injury. Cervical spine: No acute fracture. A preliminary report was given at 1:36 AM This exam was performed using automated exposure control, adjustment of mA or kV according to patient size, and/or use of iterative reconstruction technique. Electronically signed by [place]alante 01/15/2019 4:56 AM
--- NOTE | 2019-01-15 05:39 | Diag Imaging Result Doc PS360 ---
EXAM: RIBS BILATERAL W/PA CHEST HISTORY: b/l rib pain TECHNIQUE: Chest and bilateral rib detail, nine views COMPARISON: 11/16/2016 FINDINGS: The lungs are well expanded. No contusion. No pneumothorax. The mediastinum is not widened. There are multiple old rib fractures. No acute displaced fracture identified. Right granuloma. No pleural effusions. IMPRESSION: Multiple old rib fractures, but no acute rib fracture identified. Electronically signed by [place] Escalante 01/15/2019 5:37 AM
[2019-01-15] MEDS ORDERED: ATARAX PO PRN (08:13)
[2019-01-15] MEDS ORDERED: ZOFRAN IV PRN (08:14)
[2019-01-15] MEDS ORDERED: TYLENOL PO PRN (08:14)
[2019-01-15 09:59] LABS: BASO# 0.03 X1000 (0.0-0.2); BASO% 0.4 % (0.0-0.8); EOS# 0.24 X1000 (0.0-0.7); EOS% 2.9 % (0.0-10.0); HEMATOCRIT 41.6 % (37.0-47.0); IMM GRAN# 0.01 X1000 (0.0-0.04); IMM GRAN% 0.1 % (0.0-0.5); LYMPH# 1.21 X1000 (1.2-3.4); LYMPH% 14.6 % (20.5-51.1); MCH 28.4 PG (27-31); MCHC 31.3 g/dL (33-37); MONO# 1.08 X1000 (0.11-0.59); MONO% 13.1 % (1.7-9.3); MPV 10.1 FL (7.4-10.4); NEUT% 68.9 % (42.2-75.2); PLT 167 X1000 (130-400); RBC 4.57 XMIL (4.2-5.4); RDW 14.3 % (11.5-14.5); WBC 8.27 X1000 (4.8-10.8)
[2019-01-15 10:18] LABS: INR 1.19; PROTIME 15.7 Seconds (11.0-16.0)
[2019-01-15 10:19] LABS: PTT 35.5 Seconds (22.3-41.8)
--- NOTE | 2019-01-15 10:21 | EKG Report ---
Test Performed on : 01/15/2019 09:25:01 AM Test Reason : EVAL RHYTHM Blood Pressure : / mmHG Vent. Rate : 081 BPM Atrial Rate : 081 BPM P-R Int : 172 ms QRS Dur : 084 ms QT Int : 420 ms P-R-T Axes : 043 008 030 degrees QTc Int : 487 ms Normal sinus rhythm. Normal ECG When compared with ECG of 31-JAN-2008 20:42, Sinus rhythm. has replaced Atrial fibrillation. QRS duration has decreased Nonspecific T wave abnormality no longer evident in Lateral leads Confirmed by Koby Jamil MD ([id number]) on 01/19/2019 7:49:42 AM
[2019-01-15 10:23] LABS: AGAP 13; ALBUMIN 3.4 g/dL (3.5-5.0); ALKALINE PHOSPHATASE 69 U/L (32-104); BUN 22 mg/dL (8-22); CALCIUM 8.3 mg/dL (8.8-10.2); CHLORIDE 107 mmol/L (98-107); COSMO 283; CREATININE 0.7 mg/dL (0.5-0.9); ESTIMATED GFR > 60; GLUCOSE 69 mg/dL (70-104); GOT 69 U/L (10-30); GPT 24 U/L (10-36); MAGNESIUM 1.8 mg/dL (1.5-2.7); POTASSIUM 4.3 mmol/L (3.5-5.1); SODIUM 141 mmol/L (136-145); TCO2 21 mmol/L (25-35)
[2019-01-15 10:32] LABS: CK TOTAL 3760 U/L (24-173)
[2019-01-15] MEDS: SYNTHROID PO SCH (12:15)
[2019-01-15] MEDS: BACTROBAN OINTMENT TOP SCH (12:15)
[2019-01-15] MEDS ORDERED: VANCOMYCIN IV PER PHARMACY MISC SCH (12:15)
[2019-01-15] MEDS: CELEXA PO SCH (12:16)
[2019-01-15] MEDS: RYTHMOL PO SCH ×2 (12:16→22:35)
[2019-01-15] MEDS: ELIQUIS PO SCH ×2 (12:16→22:35)
[2019-01-15] MEDS: NS 1,000 ML IV SCH ×2 (12:18→19:48)
[2019-01-15] MEDS ORDERED: VANCOMYCIN 1,500 MG in NS 250 ML IV ONE (13:00)
--- NOTE | 2019-01-15 13:00 | HISTORY AND PHYSICAL ---
PRIMARY CARE PROVIDER: Ciro Montez MD. CHIEF COMPLAINT: Fall. HISTORY OF PRESENT ILLNESS: Ms. Edda Scott is an 78-year-old, female with a medical history of chronic lower extremity vasculitis or cellulitis, has been treated a couple of times in the past. Apparently had a fall at home. She is not a very good historian, is unable to really tell what happened. Apparently, she had fallen, hit her head on a concrete porch, was found in the dirt next to the porch, and a neighbor called the ambulance. Her report is that she was cooking when it happened, cooking dinner, and it was morning time when she came in. Lower extremities from the knees down have scaling. They are red. They are very red and hot on both feet on the top. There are no open wounds noted. In the past, she has been treated with permethrin with thoughts of possibly scabies but there are no obvious signs of scabies. She states that for her legs, about every other day, she does a white vinegar wash on them but otherwise does not have wound care and no other ways of treating the lower extremities. The patient also reports that her primary sent her to Dr. Grullon. She was treated with zinc oxide. In reviewing her records, it looks like on 12/05/2018, just this last month, she had a venous ultrasound, arterial ultrasound performed. The arterial shows plaque throughout the bilateral lower extremities but no stenosis. The venous ultrasound was normal. Otherwise, what is found is that she has the beginnings of rhabdomyolysis. It has not affected the kidneys yet. She has an elevation in her CK. She denies any chest pains or anything like that, so we are going to keep her here, give her IV fluid hydration, start her on some vancomycin for cellulitis. PAST MEDICAL HISTORY: 1. Brain aneurysm in 2007. 2. Hypertension. 3. Chronic atrial fibrillation. 4. Anxiety. 5. Depression. 6. Rheumatoid arthritis, mostly affecting her right hand. 7. Vitamin D deficiency. 8. Gibson's esophagus. 9. Hypothyroidism. 10. 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 She does have peripheral arterial disease but it is nonocclusive at this time. 11. 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 12. History of E. coli UTI. SURGICAL HISTORY: 1. Right eye surgery. 2. Right brain surgery secondary to a bleed. 3. Right breast benign lumps removed. SOCIAL HISTORY: Lives at [facility]. Walks with a walker. Denies alcohol, tobacco, or illicit drug use. FAMILY HISTORY: Mother had KY and stroke, at 83. Father had KY and stroke, and at 93. Sister had breast cancer, still living. ALLERGIES: Daptomycin, ceftriaxone, penicillin, quinine, and sulfa drugs. HOME MEDICATIONS: 1. Tylenol 650 mg p.o. every 6 hours p.r.n. 2. Eliquis 5 mg p.o. twice daily. 3. Citalopram 10 mg p.o. daily. 4. Vistaril 25 mg p.o. every 8 hours p.r.n. 5. Synthroid 112 mcg p.o. daily. 6. Mupirocin topical daily. 7. Rythmol 150 mg p.o. It is either twice daily or three times daily. REVIEW OF SYSTEMS: Difficult to obtain but she denies any pain at this time. A 14 point review of systems was complete and all were negative except those mentioned above in the HPI. It is really unclear how well she is able to give a detailed review of systems. PHYSICAL EXAMINATION: VITAL SIGNS: Temperature 98.0 degrees, heart rate 84, respiratory rate 16, blood pressure 133/60, O2 saturation 100% on 2 L nasal cannula. GI: Soft, nontender, nondistended. Positive bowel sounds x4. EXTREMITIES: Moves all extremities equally. Decreased range of motion of the lower extremities. SKIN: Warm, dry, intact except for lower extremities from the knees down, very much significant dermatitis. There is scaling everywhere over the bilateral feet. They are cellulitic. There is no scabbing. It is very smooth and hot, red skin. LABORATORY DATA: White blood cells 8000, hemoglobin 13, hematocrit 41, platelet count 167,000. INR is 1.19, PTT is 35.5. Sodium 141, potassium 4.3, BUN 22, creatinine 0.7, glucose 69, calcium 8.3, magnesium 1.8. Bilirubin 0.60, AST 69, ALT 24. CK yesterday was 2952. Today, it is 3760. Troponin less than 0.01. Albumin 3.4, lactate 0.8. IMAGING: Ribs with chest x-ray, multiple rib fractures. No acute finding. Head and cervical spine, no acute findings. EKG, normal sinus rhythm, rate 81, QTc is 487. ASSESSMENT/PLAN: 1. Recent fall. There is really no clear story as to what happened. She will need to be on fall precautions. 2. Bilateral lower extremity chronic dermatitis with superimposed cellulitis. We will do wound care. Start her on vancomycin. 3. Mild rhabdomyolysis. Kidney function intact. We will do intravenous fluid hydration. 4. History of atrial fibrillation, currently in sinus rhythm. Continue Rythmol and Eliquis. 5. Hypothyroidism. Continue Synthroid. 6. Deep venous thrombosis prophylaxis. She is on Eliquis. Dictated by TAWNY Gilliland for Aaron Hicks MD Addendum: Patient seen and examined by myself. Agree with TAWNY note. It reflects my assessment and plan. Patient is being admitted to hospital for bilateral LE cellulitis, fall and rhabdomyolysis, Will start Vancomycin and IV fluids and will check CBC and BMP daily. cc: TAWNY Gilliland MD [facility]
[2019-01-15 13:57] LABS: BILIRUBIN URINE NEGATIVE (NEGATIVE); BLOOD URINE 2+ (NEGATIVE); CLARITY VERY CLOUDY (CLEAR); COLOR YELLOW; GLUCOSE URINE NEGATIVE (NEGATIVE); KETONE URINE 3+(Large) mg/dL (NEGATIVE); LEUKOCYTES URINE 2+ (NEGATIVE); NITRITE URINE POSITIVE (NEGATIVE); PROTEIN URINE 1+(30 mg/dL) mg/dL (NEGATIVE); UROBILINOGEN URINE NORMAL
[2019-01-15 13:59] LABS: URINE BACTERIA 4+ /HFP; URINE CAST NONE SEEN /LPF; URINE CRYSTAL NONE SEEN /HPF; URINE EPITHELIAL CELLS <10 /HPF (<10); URINE RBC <10 /HPF (<10); URINE SOURCE CATH; URINE WBC TNTC /HPF (<10); URINE YEAST NONE SEEN /HPF
[2019-01-15] MEDS: ELIMITE 5% CREAM TOP SCH (14:33)
[2019-01-16 06:05] LABS: BASO# 0.01 X1000 (0.0-0.2); BASO% 0.2 % (0.0-0.8); EOS# 0.35 X1000 (0.0-0.7); EOS% 6.5 % (0.0-10.0); HEMATOCRIT 38.4 % (37.0-47.0); HEMOGLOBIN 11.7 g/dL (12.0-16.0); LYMPH# 0.82 X1000 (1.2-3.4); LYMPH% 15.2 % (20.5-51.1); MCH 28.1 PG (27-31); MCHC 30.5 g/dL (33-37); MCV 92.3 FL (81-99); MONO# 0.88 X1000 (0.11-0.59); MONO% 16.3 % (1.7-9.3); MPV 10.1 FL (7.4-10.4); NEUT# 3.35 X1000 (1.4-6.5); NEUT% 61.8 % (42.2-75.2); PLT 149 X1000 (130-400); RBC 4.16 XMIL (4.2-5.4); RDW 14.3 % (11.5-14.5); WBC 5.41 X1000 (4.8-10.8)
[2019-01-16 06:34] LABS: ESTIMATED GFR > 60
[2019-01-16 06:40] LABS: AGAP 8; ALBUMIN 3.1 g/dL (3.5-5.0); ALKALINE PHOSPHATASE 62 U/L (32-104); BUN 17 mg/dL (8-22); CALCIUM 8.3 mg/dL (8.8-10.2); CHLORIDE 109 mmol/L (98-107); CK TOTAL 1847 U/L (24-173); COSMO 283; CREATININE 0.6 mg/dL (0.5-0.9); GLUCOSE 98 mg/dL (70-104); GOT 52 U/L (10-30); GPT 22 U/L (10-36); MAGNESIUM 1.7 mg/dL (1.5-2.7); POTASSIUM 3.9 mmol/L (3.5-5.1); SODIUM 141 mmol/L (136-145); TCO2 24 mmol/L (25-35)
[2019-01-16] MEDS: SYNTHROID PO SCH (06:45)
[2019-01-16] MEDS: ELIMITE 5% CREAM TOP SCH (09:56)
[2019-01-16] MEDS: CELEXA PO SCH (09:56)
[2019-01-16] MEDS: BACTROBAN OINTMENT TOP SCH (09:56)
[2019-01-16] MEDS: ELIQUIS PO SCH ×2 (09:56→21:09)
[2019-01-16] MEDS: RYTHMOL PO SCH ×2 (09:57→21:09)
[2019-01-16] MEDS: NS 1,000 ML IV SCH ×4 (09:57→23:22)
--- NOTE | 2019-01-16 13:01 | PROGRESS NOTE ---
DATE: 01/16/2019 SUBJECTIVE: The patient reports feeling fine. Denies any abdominal pain. No muscle pain, fever or chills. OBJECTIVE: Vital Signs: Temperature 97.7 degrees, heart rate 67, respiratory rate 20, blood pressure 152/62, and O2 saturation 99% on 2 liters nasal cannula. General: This is an 78-year- old female lying in bed, in no acute distress. Cardiovascular: S1 and S2 heard. No murmurs, gallops, or rubs. Regular rate and rhythm. Respiratory: Clear bilaterally to auscultation. No work of breathing or using accessory muscles. Abdomen: Soft, nontender to palpation. Bowel sounds present. No organomegaly. Extremities: No clubbing, cyanosis, or edema. Peripheral pulses present in both legs. There is lower extremity reddening, looks like dermatitis and cellulitis. This is covering everywhere over both legs. Neurological: Patient is awake, moves 4 extremities. LABORATORY DATA: CBC and BMP are completely normal. CKs 1800 today. ASSESSMENT AND PLAN: 1. Recent fall where the patient is receiving physical therapy. 2. Bilateral lower extremity chronic dermatitis with superimposed cellulitis. We will continue with vancomycin. I think this patient can be transitioned to oral medication tomorrow because she is not having any fever. She is not having any elevated white cell count. 3. Mild rhabdomyolysis. Renal function is intact we will continue with IV fluids. 4. History of atrial fibrillation currently in sinus rhythm. We will continue with Eliquis and Rythmol. 5. Hypothyroidism. We will continue with Synthroid. 6. Deep vein thrombosis prophylaxis. Patient already on Eliquis. 7. Disposition. We will monitor this patient closely. If CK continues to improve, she can be discharged tomorrow. We will put a consult for physical therapy to see if this patient needs to go to rehab versus just home health. cc: Aaron Hicks MD
[2019-01-17] MEDS ORDERED: VANCOMYCIN 1,250 MG in NS 250 ML IV SCH (01:00)
[2019-01-17 06:25] LABS: BASO# 0.02 X1000 (0.0-0.2); BASO% 0.5 % (0.0-0.8); EOS# 0.39 X1000 (0.0-0.7); EOS% 9.2 % (0.0-10.0); HEMATOCRIT 35.4 % (37.0-47.0); HEMOGLOBIN 10.8 g/dL (12.0-16.0); IMM GRAN# 0.01 X1000 (0.0-0.04); IMM GRAN% 0.2 % (0.0-0.5); LYMPH% 25.9 % (20.5-51.1); MCH 28.8 PG (27-31); MCHC 30.5 g/dL (33-37); MCV 94.4 FL (81-99); MONO# 0.73 X1000 (0.11-0.59); MONO% 17.2 % (1.7-9.3); NEUT# 1.99 X1000 (1.4-6.5); PLT 158 X1000 (130-400); RBC 3.75 XMIL (4.2-5.4); RDW 14.2 % (11.5-14.5); WBC 4.24 X1000 (4.8-10.8)
[2019-01-17] MEDS: NS 1,000 ML IV SCH (06:28)
[2019-01-17] MEDS: SYNTHROID PO SCH (06:31)
[2019-01-17 06:44] LABS: AGAP 6; ALBUMIN 2.8 g/dL (3.5-5.0); ALKALINE PHOSPHATASE 52 U/L (32-104); BUN 12 mg/dL (8-22); CHLORIDE 109 mmol/L (98-107); CK TOTAL 882 U/L (24-173); COSMO 279; CREATININE 0.6 mg/dL (0.5-0.9); ESTIMATED GFR > 60; GLUCOSE 87 mg/dL (70-104); GPT 29 U/L (10-36); MAGNESIUM 1.7 mg/dL (1.5-2.7); POTASSIUM 3.7 mmol/L (3.5-5.1); SODIUM 140 mmol/L (136-145); TCO2 25 mmol/L (25-35); TOTAL PROTEIN 5.4 g/dL (6.3-8.3)
[2019-01-17 06:56] LABS: GOT 34 U/L (10-30)
[2019-01-17] MEDS: CELEXA PO SCH (10:00)
[2019-01-17] MEDS: ELIQUIS PO SCH (10:00)
[2019-01-17] MEDS: RYTHMOL PO SCH (10:00)
[2019-01-17 11:49] VITALS: BP 135/59
--- NOTE | 2019-01-18 04:47 | DISCHARGE SUMMARY ---
ADMISSION DATE: 01/15/2019 DISCHARGE DATE: 01/17/2019 ADMISSION DIAGNOSIS: 1. Recent fall. 2. Bilateral lower extremity chronic dermatitis with superimposed cellulitis. 3. Mild rhabdomyolysis. 4. History of atrial fibrillation, currently in sinus rhythm. 5. Hypothyroidism. DISCHARGE DIAGNOSIS: 1. Recent fall, receiving physical therapy. 2. Bilateral lower extremity chronic dermatitis with superimposed cellulitis. 3. History of atrial fibrillation, in sinus rhythm. 4. Hypothyroidism. 5. Klebsiella pneumoniae urinary tract infection, resistant to ampicillin and indeterminate against nitrofurantoin. CONSULTATIONS: None. SURGERIES AND PROCEDURES: None. HOSPITAL COURSE: Ms. Edda Scott is an 78-year-old female who was brought in for a fall. History of chronic lower extremity vasculitis or cellulitis and she has been treated several times in the past. She had a fall at home. She was a very poor historian. Apparently, she had fallen and hit her head on the porch, was found in the dirt next to the porch by a neighbor who called an ambulance. Lower extremities from the knee down had scaling, redness, heat. Was started on vancomycin. No open wounds. Wound Care was consulted. Permethrin was used just in case there was possible scabies. She was on isolation. Found to have some mild rhabdomyolysis and started on IV fluids for that. No fevers so she was transitioned to p.o. antibiotics. For the chronic atrial fibrillation but currently sinus rhythm, she is continued on Eliquis and Rythmol. She was stable since then. She is going to be discharged home. DISCHARGE VITAL SIGNS: Temperature 98.3 degrees, heart rate 72, respiratory rate 20, blood pressure 135/59, O2 saturation 96% on room air. DISCHARGE LABORATORY DATA: White blood cells 4000, hemoglobin 10, hematocrit 35, platelet count 158,000. Sodium 140, potassium 3.7, BUN is 12, creatinine 0.6, glucose 87, calcium 8.0, magnesium 1.7, bilirubin 0.20, AST 34, ALT 89. CK initially started out at 2952. It is down to 882. Albumin is 2.8. Urinalysis positive for UTI, micro showed Klebsiella pneumoniae in the urine. DISCHARGE MEDICATIONS: 1. Citalopram 10 mg p.o. daily. 2. Eliquis 5 mg p.o. twice daily. 3. Synthroid 112 mcg p.o. daily. 4. Mupirocin topical daily. 5. Rythmol 150 mg p.o. twice daily. 6. Doxycycline 100 mg p.o. twice daily. 7. Tylenol 650 mg p.o. every 6 hours p.r.n. 8. Vistaril 25 mg p.o. every 8 hours p.r.n. DISCHARGE DIET: Regular diet. DISCHARGE ACTIVITY: As tolerated. DISCHARGE PHYSICIAN FOLLOWUP: Dr. Ciro Montez. DISCHARGE INSTRUCTIONS: If your condition changes, contact physician and/or return to the emergency department. Changes may include, but are not limited to, shortness of breath, increased fatigue, excessive bleeding, unexplained weight loss or gain, unmanageable pain, signs or symptoms of infection. DISCHARGE DISPOSITION: Home. She will also have [facility] to help with physical therapy. Dictated by TAWNY Gilliland for Aaron Hicks MD Addendum: patient seen and examined by myself. Agree with TAWNY note. It reflects my assessment and plan. Patient is being discharged in stable condition. Will be seen by PCP in a week. cc: TAWNY Gilliland MD [facility]
== END 2019-01-17 16:50 | disposition home health service (06) | DRG 603 ==
LOC: P.ED 22:40 → P.MEDSURG 01-15 05:00
PROVIDERS: ATTEND Internal Medicine